=== PATIENT | male | born 1990 | race Hispanic/Latino ===

== ENCOUNTER 2023-11-06 18:50 | Emergency (ER) | payer OTHER ==
[~2023-11-06] VITALS: Ht 170.2 cm; Wt 68.0 kg
[2023-11-06 19:28] LABS: RAPID GROUP A STREP negative (NEGATIVE)
[2023-11-06 19:29] LABS: SARS-CoV-2, RNA, NAAT NEGATIVE SARS CoV-2 (NEGATIVE)
[2023-11-06 19:38] LABS: INFLUENZA TYPE A Negative For Type A (NEGATIVE); INFLUENZA TYPE B Negative For Type B (NEGATIVE)
[2023-11-06] MEDS ORDERED: BENZ-39 PO (21:40)
[2023-11-06] MEDS ORDERED: BENZ1LOZ81 MM (21:42)
[2023-11-06 22:04] VITALS: BP 115/62; PULSE 78; RESP 14; O2SAT 98
== END 2023-11-06 22:18 | disposition home or self-care (01) ==
LOC: EDH 18:50
DX: J06.9 Acute upper respiratory infection, unspecified (principal); F17.200 Nicotine dependence, unspecified, uncomplicated; Z20.822 Contact with and (suspected) exposure to COVID-19
CPT/HCPCS: 87635; 87804; 87880